=== PATIENT | female | born 1980 | race Caucasian/White ===

== ENCOUNTER 2016-10-21 10:07 | Emergency (ER) | payer OTHER | END 2016-10-21 12:00 | disposition home or self-care (01) | LOC: ER 10:07 | DX: R10.11 Right upper quadrant pain (principal); J40 Bronchitis, not specified as acute or chronic; B19.20 Unspecified viral hepatitis C without hepatic coma; F17.210 Nicotine dependence, cigarettes, uncomplicated; E28.2 Polycystic ovarian syndrome; Z88.2 Allergy status to sulfonamides | CPT/HCPCS: 36415; 87502 ==

== ENCOUNTER 2017-04-18 13:52 | Emergency (ER) | payer OTHER | END 2017-04-18 17:28 | disposition home or self-care (01) | LOC: ER 13:52 | DX: N83.202 Unspecified ovarian cyst, left side (principal); F17.200 Nicotine dependence, unspecified, uncomplicated; Z79.899 Other long term (current) drug therapy; Z88.1 Allergy status to other antibiotic agents | CPT/HCPCS: 36415; 96361; 96374; 96375; 96376 ==